=== PATIENT | male | born 1960 | race Caucasian/White ===

== ENCOUNTER 2016-06-15 10:04 | Emergency (ER) | payer OTHER ==
[2016-06-15 10:20] VITALS: BP 155/90; PULSE 78; TEMP 98.5; BMI 103.8
--- NOTE | 2016-06-15 10:26 | PDOC ---
History of Present Illness - General Chief Complaint: Injury Stated Complaint: SHOULDER INJURY Time Seen by Provider: 06/15/16 10:16 - History of Present Illness Initial Comments: 06/15/16 10:24 55-year-old male with a negative past medical history He is on no medications, NKDA Patient states that just prior to coming here, he tripped and fell, and landed on his left shoulder He is complaining of pain in his left shoulder which is worse with movement He denies any head injury or loss of consciousness He denies any numbness or tingling in his hand or arm He denies any elbow pain or wrist pain He denies any other injury Past History - Past Medical History Allergies/Adverse Reactions: Allergies Allergy/AdvReac Type Severity Reaction Status Date / Time No Known Allergies Allergy Verified 08/27/12 12:25 Home Medications: Ambulatory Orders No Home Medications 08/27/12 Oxycodone HCl/Acetaminophen [Percocet 5-325 mg Tablet] 1 tab PO Q6H PRN #14 tablet MDD 6 06/15/16 - Immunization History Immunization Up to Date: Yes - Psycho/Social/Smoking Cessation Hx Anxiety: No Suicidal Ideation: No Smoking Status: Yes Smoking History: Current some day smoker Number of Cigarettes Smoked Daily: 8 Information on smoking cessation initiated: Yes 'Breaking Loose' booklet given: 06/15/16 Hx Alcohol Use: No Drug/Substance Use Hx: Yes (MARIJUANA) Substance Use Type: Marijuana *Physical Exam - Vital Signs Last Vital Signs Temp Pulse Resp BP Pulse Ox 98.5 F 78 16 155/90 97 06/15/16 10:11 06/15/16 10:11 06/15/16 10:11 06/15/16 10:11 06/15/16 10:11 - Physical Exam Comments: 06/15/16 10:25 Physical exam Last Vital Signs Temp Pulse Resp BP Pulse Ox 98.5 F 78 16 155/90 97 06/15/16 10:11 06/15/16 10:11 06/15/16 10:11 06/15/16 10:11 06/15/16 10:11 Patient is alert and ambulatory and answering questions Head is normocephalic and atraumatic Left upper extremity- There is full range of motion of the left elbow and left wrist The radial pulses intact, and the fingers are warm with intact sensation There is minimal tenderness to palpation of the bony structures of the left shoulder and left humerus There is pain on abduction and extension of the shoulder, and patient is unable to abduct or extend greater than 30 There is mild pain on external and internal rotation of the left shoulder, but patient has full external and internal rotation of the left shoulder No bruising or swelling is seen All distal neurovascular is intact in the left upper extremity ED Treatment Course - RADIOLOGY Radiology Studies Ordered: Category Date Time Status SHOULDER-LEFT [RAD] Stat Radiology 06/15/16 10:22 Ordered Medical Decision Making - Medical Decision Making 06/15/16 12:03 Left shoulder series as read by me No acute fracture is seen Suboptimal Y view Impression-clinically, possible rotator cuff injury Sling, rest, orthopedic follow-up *DC/Admit/Observation/Transfer Diagnosis at time of Disposition: Injury of left shoulder, Internal derangement of shoulder - Discharge Dispostion Disposition: HOME Condition at time of disposition: Stable - Prescriptions Prescriptions: Oxycodone HCl/Acetaminophen [Percocet 5-325 mg Tablet] 1 tab PO Q6H PRN #14 tablet MDD 6 PRN Reason: Pain - Referrals Referrals: Richy Mauricio MD [Staff Physician] - (Call for an appointment to be seen) - Patient Instructions Printed Discharge Instructions: How to Use a Sling, How to Quit Smoking Additional Instructions: Sling, elevate, rest Ice packs off and on for the first 48 hours Tylenol or Motrin for daytime pain Percocet for nighttime pain Please call orthopedics today and make an appointment for early next week Followup with your primary care physician in 24-48 hours Return immediately if you worsen in any way Take your medications as directed The x-ray reading is a preliminary reading, if there is any change when the radiologist reads the x-rays you will be called - Post Discharge Activity Work/School Note: Back to Work
== END 2016-06-15 12:30 | disposition home or self-care (01) ==
LOC: FER 10:04
DX: S49.92XA Unspecified injury of left shoulder and upper arm, initial encounter (principal); W18.30XA Fall on same level, unspecified, initial encounter; Y93.9 Activity, unspecified; Y92.9 Unspecified place or not applicable; F17.210 Nicotine dependence, cigarettes, uncomplicated
CPT/HCPCS: 73030-TC-LT; 99281-25

== ENCOUNTER 2017-02-10 15:06 | Emergency (ER) | payer OTHER ==
[2017-02-10 15:15] VITALS: BMI 45.4
[2017-02-10 15:52] LABS: BASOPHIL 0.3 % (0-2.0); EOSINOPHIL 3.8 % (0-4.5); MCH 30.3 pg (25.7-33.7); MCHC 34.6 g/dl (32.0-35.9); MEAN CELL VOLUME 87.7 fl (80-96); NEUTROPHILS 62.4 % (42.8-82.8); PLATELET COUNT 216 K/MM3 (134-434); RDW 13.1 % (11.9-15.9); WHITE BLOOD COUNT 7.2 K/mm3 (4.0-10.0)
--- NOTE | 2017-02-10 15:52 | PDOC ---
History of Present Illness - General History Source: Patient Exam Limitations: No Limitations - History of Present Illness Initial Comments: 02/10/17 16:38 The patient is a 56-year-old male with no significant past medical history, and presents to the emergency department with chest discomfort for 1 hour. He reports the discomfort is located in the mid-sternal region. He reports the sensation is like there was air in my chest, and like he needed to burp. He states he was at a [employer] and intaking alcohol and smoking marijuana when the pain started. He reports associated lightheadedness with the episode of chest discomfort, but notes he is feeling better upon interview. He states he has not eaten yet. He notes that for the last few weeks, he has also been randomly experiencing a fluttering and anticipation in his chest. The patient denies shortness of breath, headache and dizziness. The patient denies fever, chills, nausea, vomit, diarrhea and constipation. The patient denies dysuria, frequency, urgency and hematuria. Allergies: NKDA Past Surgical History: None reported Social History: Marijuana use, ETOH use, current everyday smoker (3 cigarettes per day) <Rachel Sepulveda - Last Filed: 02/10/17 17:13> <Nick Pardo - Last Filed: 02/10/17 18:13> - General Chief Complaint: Chest Pain Stated Complaint: CHEST DISCOMFORT Time Seen by Provider: 02/10/17 15:44 Past History <Rachel Sepulveda - Last Filed: 02/10/17 17:13> - Past Medical History Other medical history: obesity - Immunization History Immunization Up to Date: Yes - Psycho/Social/Smoking Cessation Hx Anxiety: No Suicidal Ideation: No Smoking Status: Yes Smoking History: Current every day smoker Number of Cigarettes Smoked Daily: 3 Information on smoking cessation initiated: Yes 'Breaking Loose' booklet given: 02/10/17 Hx Alcohol Use: Yes Drug/Substance Use Hx: Yes (marijuana) Substance Use Type: Marijuana <Nick Pardo - Last Filed: 02/10/17 18:13> - Past Medical History Allergies/Adverse Reactions: Allergies Allergy/AdvReac Type Severity Reaction Status Date / Time No Known Allergies Allergy Verified 02/10/17 15:15 Home Medications: Ambulatory Orders No Home Medications 08/27/12 Review of Systems - Review of Systems Able to Perform ROS?: Yes Comments:: 02/10/17 16:38 GENERAL/CONSTITUTIONAL: No fever or chills. No weakness. HEAD, EYES, EARS, NOSE AND THROAT: No change in vision. No ear pain or discharge. No sore throat. CARDIOVASCULAR: (+) Chest pain. (+) Lightheadedness. No shortness of breath. RESPIRATORY: No cough, wheezing, or hemoptysis. GASTROINTESTINAL: No nausea, vomiting, diarrhea or constipation. GENITOURINARY: No dysuria, frequency, or change in urination. MUSCULOSKELETAL: No joint or muscle swelling or pain. No neck or back pain. SKIN: No rash NEUROLOGIC: No headache, vertigo, loss of consciousness, or change in strength/ sensation. ENDOCRINE: No increased thirst. No abnormal weight change. HEMATOLOGIC/LYMPHATIC: No anemia, easy bleeding, or history of blood clots. ALLERGIC/IMMUNOLOGIC: No hives or skin allergy. <Sepulveda,Rachel - Last Filed: 02/10/17 17:13> *Physical Exam - Vital Signs Last Vital Signs Temp Pulse Resp BP Pulse Ox 98.5 F 68 19 200/110 96 02/10/17 15:13 02/10/17 15:13 02/10/17 15:13 02/10/17 15:13 02/10/17 15:13 - Physical Exam Comments: 02/10/17 16:38 GENERAL: Awake, alert, and fully oriented, in no acute distress HEAD: No signs of trauma EYES: PERRLA, EOMI, sclera anicteric, conjunctiva clear ENT: Auricles normal inspection, hearing grossly normal, nares patent, oropharynx clear without exudates. Moist mucosa NECK: Normal ROM, supple, no lymphadenopathy, JVD, or masses LUNGS: Breath sounds equal, clear to auscultation bilaterally. No wheezes, and no crackles HEART: Regular rate and rhythm, normal S1 and S2, no murmurs, rubs or gallops ABDOMEN: (+) Obese. (+) Protuberant belly. Soft, nontender, normoactive bowel sounds. No guarding, no rebound. No masses EXTREMITIES: Normal range of motion, no edema. No clubbing or cyanosis. No cords, erythema, or tenderness NEUROLOGICAL: Cranial nerves II through XII grossly intact. Normal speech, normal gait SKIN: Warm, Dry, normal turgor, no rashes or lesions noted. <Rachel Sepulveda - Last Filed: 02/10/17 17:13> - Vital Signs Last Vital Signs Temp Pulse Resp BP Pulse Ox 98.5 F 68 19 200/110 96 02/10/17 15:13 02/10/17 15:13 02/10/17 15:13 02/10/17 15:13 02/10/17 15:13 <Nick Pardo - Last Filed: 02/10/17 18:13> ED Treatment Course - LABORATORY CBC & Chemistry Diagram: 02/10/17 15:35 02/10/17 15:35 - ADDITIONAL ORDERS Additional order review: Laboratory Results 02/10/17 02/10/17 15:52 15:35 Sodium 139 Potassium 4.3 Chloride 107 Carbon Dioxide 24 Anion Gap 8 BUN 14 Creatinine 0.8 Creat Clearance w eGFR > 60 Random Glucose 111 H Calcium 8.5 Total Bilirubin 0.6 AST 16 ALT 31 Alkaline Phosphatase 99 Creatine Kinase 301 Creatine Kinase Index 1.0 CK-MB (CK-2) 3.084 Troponin I 0.03 Total Protein 7.1 Albumin 4.1 Lipase 228 02/10/17 15:35 RBC 5.23 MCV 87.7 MCHC 34.6 RDW 13.1 MPV 8.0 Neutrophils % 62.4 Lymphocytes % 24.2 Monocytes % 9.3 Eosinophils % 3.8 Basophils % 0.3 - RADIOLOGY Radiograph Interpretation: 02/10/17 17:13 CXR PORTABLE IMPRESSION: Suboptimal inspiratory effort which exaggerates cardiomediastinal silhouette. Prominence of the cardiomediastinal silhouette and prominence of the perihilar lung markings are noted. Cannot exclude mild congestive changes. Reported by: Dr. Serena Banks Reviewed by: Dr. Nick Pardo <Rachel Sepulveda - Last Filed: 02/10/17 17:13> - LABORATORY CBC & Chemistry Diagram: 02/10/17 15:35 02/10/17 15:35 - RADIOLOGY Radiology Studies Ordered: Category Date Time Status ZACARIAS [CHEST X-RAY PORTABLE*] [RAD] Stat Radiology 02/10/17 15:33 Taken <Nick Pardo - Last Filed: 02/10/17 18:13> *DC/Admit/Observation/Transfer - Attestations Scribe Attestion: 02/10/17 16:39 Documentation prepared by Rachel Sepulveda, acting as medical billing associate for Nick Pardo DO. <Rachel Sepulveda - Last Filed: 02/10/17 17:13> - Discharge Dispostion Admit: No - Attestations Physician Attestion: 02/10/17 15:52 I, Dr. Nick Pardo, attest that this document has been prepared under my direction and personally reviewed by me in its entirety. I further attest, that it accurately reflects all work, treatment, procedures and medical decision -making performed by me. <Nick Pardo - Last Filed: 02/10/17 18:13> Diagnosis at time of Disposition: Atypical chest pain - Discharge Dispostion Disposition: HOME Condition at time of disposition: Unchanged/Unknown - Referrals Referrals: STAFF,NOT ON [Primary Care Provider] - - Patient Instructions Printed Discharge Instructions: DI for Atypical Chest Pain Additional Instructions: Guido- I think it is important for you to follow up with a network operations specialist - please call Dr. Gudino tomorrow. Best- Dr. Nick Pardo
[2017-02-10 16:05] LABS: ALBUMIN 4.1 g/dl (3.4-5.0); ANION GAP 8 (8-16); BILIRUBIN,TOTAL 0.6 mg/dL (0.2-1.0); CALCIUM 8.5 mg/dL (8.5-10.1); CO2 24 mmol/L (21-32); CREATININE 0.8 mg/dL (0.7-1.3); GLUCOSE,RANDOM 111 mg/dL (74-106); SGOT/AST 16 U/L (15-37); SGPT/ALT 31 U/L (12-78); TOT PROT 7.1 g/dl (6.4-8.2)
[2017-02-10 16:07] LABS: ALK PHOS 99 U/L (45-117); CPK 301 IU/L (39-308); TROPONIN I 0.03 ng/ml (0.00-0.05)
[2017-02-10 16:22] LABS: INR 0.95 (0.82-1.09); PROTHROMBIN TIME (PATIENT) 10.4 SEC (9.98-11.88)
[2017-02-10 16:24] LABS: ACTIVATED PTT 30.5 SECONDS (26.9-34.4)
[2017-02-10 18:58] VITALS: BP 189/100; PULSE 70; TEMP 98.1
--- NOTE | 2017-02-11 21:48 | EKG ---
Test Reason : Blood Pressure : / mmHG Vent. Rate : 067 BPM Atrial Rate : 067 BPM P-R Int : 136 ms QRS Dur : 080 ms QT Int : 386 ms P-R-T Axes : 000 021 025 degrees QTc Int : 407 ms NORMAL SINUS RHYTHM NORMAL ECG NO PREVIOUS ECGS AVAILABLE Confirmed by KATHIE RIVAS MD ([id number]) on 02/11/2017 9:48:30 PM Referred By: Confirmed By:KATHIE RIVAS MD
== END 2017-02-10 18:44 | disposition home or self-care (01) ==
LOC: JER 15:06
DX: R07.89 Other chest pain (principal)
CPT/HCPCS: 36415; 71010-TC; 80053; 82553; 83690; 84484; 85025; 85379; 85610; 85730; 93005; 93010; 99283-25